=== PATIENT | male | born 1945 | race Caucasian/White ===

== ENCOUNTER → 2020-02-06 | Outpatient (CLI) | payer OTHER ==
[~2020-02-06] MED LIST: LOTRIMIN CREAM45 GM TOP
[2020-02-06 19:47] LABS: HEMOGLOBIN 8.8 gm/dl (14.0-17.5); RED BLOOD COUNT 2.88 M/UL (4.20-5.50); WHITE BLOOD COUNT 10.1 K/UL (4.5-11.0)
== END ==
LOC: LBRF 18:49
PROVIDERS: Family Medicine
DX: N18.6 End stage renal disease (principal); N40.0 Benign prostatic hyperplasia without lower urinary tract symptoms; I50.9 Heart failure, unspecified; D63.1 Anemia in chronic kidney disease; K50.918 Crohn's disease, unspecified, with other complication; E87.2 Acidosis
CPT/HCPCS: 80048; 80069; 85025

== ENCOUNTER 2020-05-30 11:29 | Emergency (ER) | payer OTHER ==
[2020-05-30 13:28] LABS: HEMOGLOBIN 10.1 gm/dl (14.0-17.5); RED BLOOD COUNT 3.63 M/UL (4.20-5.50); WHITE BLOOD COUNT 13.4 K/UL (4.5-11.0)
== END 2020-05-30 21:12 | disposition short-term general hospital (02) ==
LOC: ER1 11:29 → CDU 16:18 → ER1 16:18
PROVIDERS: Physician Assistant
DX: L03.311 Cellulitis of abdominal wall (principal); N18.9 Chronic kidney disease, unspecified; J44.9 Chronic obstructive pulmonary disease, unspecified; I50.9 Heart failure, unspecified; Z20.822 Contact with and (suspected) exposure to COVID-19; Z90.49 Acquired absence of other specified parts of digestive tract; Z93.3 Colostomy status; F03.90 Unspecified dementia, unspecified severity, without behavioral disturbance, psychotic disturbance, mood disturbance, and anxiety
CPT/HCPCS: 71045; 80053; 83690; 85025; 85652; 86140; 87040; 96365; 96366; 96367; 99285; J2543; J3370; J7030; U0002

== ENCOUNTER 2020-06-12 19:52 | Emergency (ER) | payer OTHER ==
[2020-06-12 20:37] LABS: HEMOGLOBIN 10.1 gm/dl (14.0-17.5); RED BLOOD COUNT 3.61 M/UL (4.20-5.50); WHITE BLOOD COUNT 13.5 K/UL (4.5-11.0)
== END 2020-06-13 00:10 | disposition short-term general hospital (02) ==
LOC: ER1 19:52
PROVIDERS: Physician Assistant
DX: K94.02 Colostomy infection (principal); L03.311 Cellulitis of abdominal wall; Z20.822 Contact with and (suspected) exposure to COVID-19; N18.6 End stage renal disease; J44.9 Chronic obstructive pulmonary disease, unspecified; I50.9 Heart failure, unspecified
CPT/HCPCS: 80053; 83605; 83690; 85025; 85652; 86140; 96374; 99285; J0696; J7030; U0002

== ENCOUNTER 2020-07-14 11:51 | Emergency (ER) | payer OTHER ==
[2020-07-14 13:23] LABS: HEMOGLOBIN 8.7 gm/dl (14.0-17.5); RED BLOOD COUNT 2.98 M/UL (4.20-5.50); WHITE BLOOD COUNT 6.5 K/UL (4.5-11.0)
[2020-07-14] MEDS ORDERED: LOTRIMIN CREAM45 GM TOP (14:25)
== END 2020-07-14 14:56 ==
LOC: ER1 11:51
PROVIDERS: Physician Assistant
DX: L30.9 Dermatitis, unspecified (principal); K50.90 Crohn's disease, unspecified, without complications; N18.9 Chronic kidney disease, unspecified; J44.9 Chronic obstructive pulmonary disease, unspecified
CPT/HCPCS: 80053; 85025; 99283